=== PATIENT | female | born 1965 | race Caucasian/White ===

== ENCOUNTER → 2021-01-07 09:21 | Outpatient (CLI) | payer OTHER, SELFPAY ==
[2021-01-07 10:29] LABS: COVID19 -Nasal RAPID Negative (Negative)
== END ==
PROVIDERS: Family Provider Family Medicine; PCP Family Medicine; Referring Provider Family Medicine; Visit Provider Internal Medicine
DX: Z20.822 Contact with and (suspected) exposure to COVID-19 (principal)
CPT/HCPCS: 87635; C9803

== ENCOUNTER → 2021-01-08 10:49 | Outpatient (CLI) | payer OTHER, SELFPAY ==
--- NOTE | 2021-01-17 11:03 | PM.PFT.1 ---
Pulmonary Function Test Referral & Results Date Patient Seen: 01/08/21 Requesting provider: Latasha Dunaway Results: The spirometry demonstrates an FVC of 3.33 L which is 90% of predicted. The FEV1 was measured at 2.54 L which is 88% of predicted. The FEV1/FVC ratio was 76 which is 96% of predicted. Following the administration of bronchodilator there was no appreciable change. Lung volumes show an SVC of 3.23 L which is 95% of predicted. The diffusing capacity was measured at 26.43 which is 98% of predicted. The maximum voluntary ventilation was normal Interpretation: This study demonstrates normal pulmonary function
== END ==
PROVIDERS: Family Provider Family Medicine; PCP Family Medicine; Referring Provider Family Medicine; Visit Provider Family Medicine
DX: R06.2 Wheezing (principal); J98.8 Other specified respiratory disorders; Z87.891 Personal history of nicotine dependence
CPT/HCPCS: 94060; 94726; 94729

== ENCOUNTER → 2021-01-11 12:10 | Outpatient (CLI) | payer OTHER, SELFPAY ==
--- NOTE | 2021-01-11 | DI.MG.S_ITS ---
BILATERAL DIGITAL SCREENING MAMMOGRAM 3D/2D WITH CAD: 01/11/2021 CLINICAL: Routine screening. Comparison is made to exams dated: 06/01/2017 mammogram, 05/22/2017 mammogram, 01/01/2015 mammogram, and 08/31/2012 mammogram - [facility]. There are scattered fibroglandular elements in both breasts. Current study was also evaluated with a Computer Aided Detection (CAD) system. No significant masses, calcifications, or other findings are seen in either breast. There has been no significant interval change. IMPRESSION: NEGATIVE There is no mammographic evidence of malignancy. A 1 year screening mammogram is recommended. This exam was interpreted at Station ID: [id number]. NOTE: For mammograms, a report in lay terms will be sent to the patient. Approximately 15% of breast malignancies will not be visualized mammographically. In the management of a palpable breast mass, a negative mammogram must not discourage biopsy of a clinically suspicious lesion. Electronically Signed By: Luis lou/froy:01/11/2021 12:33:45 letter sent: Normal Exam ACR BI-RADS Category 1: Negative 3341F
--- NOTE | 2021-01-11 | DI.RAD.S_ITS ---
PROCEDURE: XR CHEST 2V INDICATIONS: WHEEZING TECHNIQUE: 2 views of the chest were acquired. COMPARISON: [facility], , CHEST 2 VIEW, 12/18/2014, 12:24. FINDINGS: Surgical changes and devices: None. Lungs and pleura: Lungs are clear. No pleural effusions or pneumothorax. Mediastinum: Mediastinal contours are normal. Heart size is normal. Bones and chest wall: No suspicious bony abnormalities. Soft tissues appear unremarkable. IMPRESSION: Normal for age, source of current wheezing symptoms is not seen. Dictated by: Bijan Brito M.D. on 01/11/2021 at 12:49 Approved by: Bijan Brito M.D. on 01/11/2021 at 12:50
--- NOTE | 2021-01-11 | DI.US.S_ITS ---
PROCEDURE: US PELVIC COMPLETE INDICATIONS: ABNORMAL BLEEDING TECHNIQUE: Real-time scanning was performed of the pelvic organs, with image documentation. Additional endovaginal scanning was necessary due to incomplete visualization of the adnexal and endometrial structures by transabdominal scanning. COMPARISON: [facility], US PELVIC, 09/03/2002, 14:44. FINDINGS: Uterus: Uterus is normal in size at 7.2 x 3.7 x 4.8 cm. The endometrium is ill-defined and not well visualized. Ovaries: Right ovary not visualized. Normal left ovary measuring 1.9 x 0.9 x 1.6 cm. Other: No pathologic free abdominal or pelvic fluid. IMPRESSION: Ill-defined endometrial complex which cannot be accurately assessed. If indicated, pre and post-contrast gynecologic protocol MRI could be performed for further assessment. Dictated by: Vince RODAS Interpreted: Bernadine Wilson MD on 01/11/2021 at 13:41 Approved by: Bernadine Wilson M.D. on 01/11/2021 at 15:08
== END ==
PROVIDERS: Family Provider Family Medicine; PCP Family Medicine; Referring Provider Family Medicine; Visit Provider Family Medicine
DX: Z12.31 Encounter for screening mammogram for malignant neoplasm of breast (principal); N93.9 Abnormal uterine and vaginal bleeding, unspecified; R06.2 Wheezing
CPT/HCPCS: 71046; 76830; 76856; 77063; 77067

== ENCOUNTER → 2021-02-08 09:47 | Outpatient (CLI) | payer OTHER, SELFPAY ==
[2021-02-08 11:06] LABS: COVID19 -Nasal RAPID Negative (Negative)
== END ==
PROVIDERS: Family Provider Family Medicine; PCP Family Medicine; Visit Provider Physician Assistant
DX: Z20.822 Contact with and (suspected) exposure to COVID-19 (principal)
CPT/HCPCS: 87635

== ENCOUNTER → 2021-02-10 07:52 | Outpatient (CLI) | payer OTHER, SELFPAY ==
--- NOTE | 2021-02-10 19:54 | DI.NM.S_ITS ---
DATE OF SERVICE: 02/10/2021 PROCEDURE PERFORMED: Exercise treadmill stress and rest myocardial perfusion imaging with gating to assess ejection fraction and regional wall motion. ORDERING PROVIDER: Latasha Dunaway M.D. INDICATIONS: The patient is a 55-year-old female with chest pressure. EXERCISE TREADMILL TESTING: The patient was able to exercise for 7 minutes 55 seconds on a standard Karl protocol, suggesting good exercise capacity with an CHELA of -8 percent, achieving 10.1 METs. She had a normal heart rate and blood pressure response, achieving a maximum heart rate of 159 BPM (96 percent of her predicted maximum). She had no chest discomfort or other anginal symptoms. The resting ECG appears normal and there are no ST-segment shifts or arrhythmias with exercise. At 6 minutes 40 seconds of exercise at a heart rate of 145 BPM, 25.6 millicuries of technetium-99m Myoview was injected and she was imaged 20 minutes later using a gated SPECT acquisition protocol. Earlier in the day while at rest, she had been injected with 14.2 millicuries technetium-99m Myoview and was imaged 30 minutes later, again using a gated SPECT acquisition protocol. FINDINGS: 1. Raw data: There is fair myocardial tracer uptake with moderate breast shadows noted. Her lung/heart ratio was normal at 0.32 with a normal TID ratio of 0.87. 2. Quantitated gated SPECT: Post-stress ejection fraction is estimated at 73 percent with normal wall motion and specifically the anterior wall appears to have brisk contractility. Resting ejection fraction is 64 percent with a borderline elevated end-diastolic volume of 123 mL. 3. Myocardial perfusion imaging: Post-stress supine images show a mild perfusion defect in the mid anterior wall in a pattern that would be most consistent with breast attenuation artifact, supported by its near-complete resolution on the prone images, although with a slight residual defect remaining present but shifted superiorly, consistent with differential breast positioning. The resting images show an identical perfusion pattern without any significant improvement in the anterior defect and no other perfusion defects. IMPRESSION: 1. Probable normal myocardial perfusion study. 2. Mild fixed mid anterior defect that nearly completely resolves on prone imaging, most consistent with breast attenuation artifact. While a nontransmural myocardial infarction cannot be entirely excluded, the absence of any wall motion abnormality in this area would mitigate against it. There is no evidence for any significant myocardial ischemia. 3. Normal left ventricular systolic function without any regional wall motion abnormality. Left ventricular volumes are at the upper limits of normal. 4. Good exercise capacity without angina or electrocardiographic evidence of ischemia. MichaelCindy - ROLA/royal/jeanmarie doc#: [id number]/job#: [id number] dd: 02/10/2021 17:04:00 dt: 02/10/2021 19:45:00 DICTATING MD/COPIES TO: Obey Ha MD; Latasha Dunaway MD COPIES MNE: SUMI;
== END ==
PROVIDERS: Family Provider Family Medicine; PCP Family Medicine; Referring Provider Family Medicine; Visit Provider Family Medicine
DX: R07.9 Chest pain, unspecified (principal)
CPT/HCPCS: 78452; 93017; A9502

== ENCOUNTER 2023-03-29 17:41 | Emergency (ER) | payer OTHER, SELFPAY ==
[2023-03-29 17:44] VITALS: BP 140/84; PULSE 53; RESP 53; TEMP 36.8; O2SAT 98; BMI 29.9
--- NOTE | 2023-03-29 17:46 | DI.RAD.S_ITS ---
PROCEDURE: XR ANKLE LT MIN 3V INDICATIONS: rolled ankle, pain and swelling TECHNIQUE: 3 views of the ankle were acquired. COMPARISON: None. FINDINGS: Bones: No fractures or dislocations. Ankle mortise is normally aligned. No suspicious bony lesions. Soft tissues: No tibiotalar joint effusion. Ossification within the distal Achilles tendon. IMPRESSION: 1. Chronic Achilles tendinopathy. 2. No acute fracture. No osseous lesion. If symptoms and/or clinical suspicion for pathology persist, further assessment with repeat, or advanced imaging (e.g., CT, MRI, or bone scan) may be helpful for further assessment. Dictated by: Colt Churchill M.D. on 03/29/2023 at 18:04 Approved by: Colt Churchill M.D. on 03/29/2023 at 18:04
[2023-03-29 20:10] VITALS: BP 110/55; PULSE 65; RESP 16; O2SAT 97
--- NOTE | 2023-03-29 22:16 | ED_ITS ---
HPI - Extremity Injury (Lower) General Chief Complaint: Extremity Injury, Lower Stated Complaint: rolled lt foot and ankle Time Seen by Provider: 03/29/23 22:16 Source: patient Mode of arrival: Wheelchair Related Data Home Medications Medication Instructions Recorded Confirmed etonogestrel 0.12 mg-ethinyl 1 vaginalrin vaginal Q3W 04/05/18 12/15/18 estradiol 0.015 mg/24 hr vaginal ring (NuvaRing) fluticasone propionate 50 1 spray intranasal DAILY 04/05/18 12/15/18 mcg/actuation nasal spray,suspension (Flonase Allergy Relief) loratadine 10 mg tablet (Claritin) 10 mg PO DAILY 04/05/18 12/15/18 rizatriptan 5 mg tablet (Maxalt) 5 mg PO ONCE 04/05/18 12/15/18 Previous Rx's Medication Instructions Recorded erythromycin 5 mg/gram (0.5 %) eye 1 applictn ophthalmic (eye) BID #1 11/08/18 ointment g albuterol sulfate 90 mcg/actuation 1 inh inhalation Q4-6H PRN 12/15/18 aerosol inhaler shortness of breath #18 grams azithromycin 250 mg tablet See Rx Instructions PO .COMPLEX #6 12/15/18 tabs Allergies Allergy/AdvReac Type Severity Reaction Status Date / Time No Known Drug Allergies Allergy Verified 03/29/23 17:44 Patient History Social History Smoking Status: Never smoker alcohol intake: current (occasionally) Smoking Status: Never smoker Substance Use Type: marijuana Exam Initial Vital Signs Initial Vital Signs: Vital Signs Temperature 98.2 F 03/29/23 17:44 Pulse Rate 53 L 03/29/23 17:44 Respiratory Rate 53 H 03/29/23 17:44 Blood Pressure 140/84 03/29/23 17:44 Pulse Oximetry 98 03/29/23 17:44 Oxygen Delivery Method Room Air 03/29/23 17:44 Course Orders Ordered: ED Orders 03/29/23 17:46 XR ankle LT min 3V Stat Vital Signs Vital signs: Vital Signs - 8 hr 03/29/23 17:44 03/29/23 20:10 Temperature 98.2 F Pulse Rate 53 L 65 Respiratory Rate 53 H 16 Blood Pressure 140/84 110/55 L Pulse Oximetry 98 97 Oxygen Delivery Method Room Air Room Air Discharge Plan Departure Patient Disposition: Left Without Being Seen Clinical Impression: Patient left without being seen Prescriptions: No Action fluticasone propionate [Flonase Allergy Relief] 50 mcg/actuation spray,susp ension 1 spray NASAL DAILY loratadine [Claritin] 10 mg tablet 10 mg PO DAILY rizatriptan [Maxalt] 5 mg tablet 5 mg PO ONCE etonogestrel-ethinyl estradiol [NuvaRing] 0.12-0.015 mg/24 hr ring 1 vaginalrin VAG Q3W azithromycin 250 mg tablet See Rx Instructions PO .COMPLEX Qty: 6 0RF Rx Instructions: take 500 mg today (day 1), then 250 mg for 4 days (days 2-5) PO albuterol sulfate 90 mcg/actuation HFA aerosol inhaler 1 inh INHALATION Q4-6H PRN (Reason: shortness of breath) Qty: 18 0RF erythromycin 5 mg/gram (0.5 %) ointment 1 applictn ophthalmic (eye) BID Qty: 1 0RF
[2023-03-29 22:17] VITALS: BP 133/74; PULSE 61; RESP 16; O2SAT 98
== END 2023-03-29 22:24 | disposition left against medical advice (07) ==
PROVIDERS: Emergency Provider Emergency Medicine; Family Provider Family Medicine; PCP Family Medicine
DX: M25.572 Pain in left ankle and joints of left foot (principal)
CPT/HCPCS: 73610; 99281

== ENCOUNTER → 2023-11-18 07:52 | Outpatient (CLI) | payer OTHER, SELFPAY ==
--- NOTE | 2023-11-18 | DI.MG.S_ITS ---
BILATERAL DIGITAL SCREENING MAMMOGRAM 3D/2D WITH CAD: 11/18/2023 CLINICAL: Routine screening. Comparison is made to exams dated: 01/11/2021 mammogram, 06/01/2017 mammogram, 05/22/2017 mammogram, and 01/01/2015 mammogram - [facility]. There are scattered areas of fibroglandular density in both breasts (category b / 25%-50% glandular tissue). Current study was also evaluated with a Computer Aided Detection (CAD) system. No significant masses, calcifications, or other findings are seen in either breast. There has been no significant interval change. IMPRESSION: NEGATIVE There is no mammographic evidence of malignancy. A 1 year screening mammogram is recommended. Based on the Tyrer Cuzick model (a risk assessment model) the patient's lifetime risk is 7.4% and her 10 year risk is 2.7%. According to the ACR, ACS, and NCCN guidelines, an annual breast MRI exam along with mammogram is recommended if the patient's lifetime risk is 20% or greater. This exam was interpreted at Station ID: [id number]. NOTE: For mammograms, a report in lay terms will be sent to the patient. Approximately 15% of breast malignancies will not be visualized mammographically. In the management of a palpable breast mass, a negative mammogram must not discourage biopsy of a clinically suspicious lesion. Electronically Signed By: Willard feldman/froy:11/21/2023 07:12:10 letter sent: Normal Exam ACR BI-RADS Category 1: Negative 3341F
== END ==
PROVIDERS: Family Provider Family Medicine; PCP Family Medicine; Referring Provider Family Medicine; Visit Provider Family Medicine
DX: Z12.31 Encounter for screening mammogram for malignant neoplasm of breast (principal)
CPT/HCPCS: 77063; 77067

== ENCOUNTER 2024-03-07 10:34 | Day surgery (SDC) | payer OTHER, SELFPAY ==
[2024-03-07 11:13] VITALS: BP 108/64; PULSE 57; RESP 14; TEMP 36.8; O2SAT 94
[2024-03-07] MEDS: LACTATED RINGERS 1,000 ML 42 ML IV (11:28)
--- NOTE | 2024-03-07 11:28 | P.HP_ITS ---
History of Present Illness History of Present Illness Date Patient Seen: 03/07/24 Time Patient Seen: 11:28 Chief complaint: Colonoscopy Narrative: Cindy is a 58-year-old woman who presents for colonoscopy. She last had one aproximally 5 years ago in [place] with polyps removed. No family history of colon cancer. [facility] Social History Smoking Status: Never smoker alcohol intake: current Meds Home Medications and Allergies Home Medications Medication Instructions Recorded Confirmed Type fluticasone propionate 50 1 spray intranasal DAILY 04/05/18 03/07/24 History mcg/actuation nasal spray,suspension (Flonase Allergy Relief) loratadine 10 mg tablet (Claritin) 10 mg PO DAILY 04/05/18 03/07/24 History rizatriptan 5 mg tablet (Maxalt) 5 mg PO ONCE 04/05/18 03/07/24 History albuterol sulfate 90 mcg/actuation 1 inh inhalation Q4-6H PRN 12/15/18 03/07/24 Rx aerosol inhaler shortness of breath #18 grams Allergies Allergy/AdvReac Type Severity Reaction Status Date / Time No Known Drug Allergies Allergy Verified 03/29/23 17:44 Exam Vital Signs (past 8 hours): - 03/07/24 11:13 Temperature 98.2 F Pulse Rate 57 L Respiratory Rate 14 Blood Pressure 108/64 Pulse Oximetry 94 Oxygen Delivery Method Room Air Oxygen Delivery Method Room Air Const General: No acute distress Resp Effort & Inspection: normal respiratory effort Assessment & Plan Assessment and plan (1) Colon cancer screening: Status: Acute Plan We reviewed the risks and benefits of colonoscopy for colon cancer screening and she would like to proceed.
--- NOTE | 2024-03-07 12:40 | PM.OP.COLON ---
Operative Date/Time/Diagnoses Date of procedure: 03/07/24 Time of procedure: 12:40 Pre-op diagnosis: Colon cancer screening Post-op diagnosis: same Procedure & Clinicians Study performed: Colonoscopy Same procedure as scheduled: Yes Surgeon: Power Betancourt Procedure Notes Procedure in detail: Surgeon: Power Betancourt MD Anesthesia: Amy York DO Procedure: The patient was brought to the endoscopy suite, placed in left lateral decubitus position. The patient was connected to monitoring devices. A time-out was performed. Sedation was administered. Once the patient was adequately sedated, a digital rectal exam was performed and was normal. The scope was then inserted and advanced to the cecum where the appendiceal orifice was identified and photographed. The scope was then slowly withdrawn over greater than 6 minutes. The mucosa was thoroughly inspected. No abnormalities were found. The scope was retroflexed in the rectum. No abnormalities were seen. The scope was straightened and removed. The patient was awakened and brought to recovery. Scope withdrawal time: 7 minutes Sedation time: 11 minutes EBL: 0 Findings: Normal colon Post-procedure Recommendations: Colonoscopy in 10 years Disposition: PACU
[2024-03-07 12:43] VITALS: BP 107/45; PULSE 70; RESP 20; TEMP 36.3; O2SAT 98
[2024-03-07 12:48] VITALS: BP 101/59; PULSE 67; RESP 14; O2SAT 97
[2024-03-07 13:00] VITALS: BP 119/73; PULSE 60; RESP 14; O2SAT 97
[2024-03-07 13:15] VITALS: BP 143/78; PULSE 68; RESP 16; TEMP 36.5; O2SAT 97
== END 2024-03-07 13:20 | disposition home or self-care (01) ==
PROVIDERS: Family Provider Family Medicine; PCP Family Medicine; Referring Provider Surgery; Visit Provider Surgery
PROC: 0DJD8ZZ Inspection of Lower Intestinal Tract, Via Natural or Artificial Opening Endoscopic (ICD-10-PCS; CPT 45378; principal; 2024-03-07 11:30)
DX: Z12.11 Encounter for screening for malignant neoplasm of colon (principal)
CPT/HCPCS: 45378; J2704

== ENCOUNTER → 2025-04-30 09:08 | Outpatient (CLI) | payer OTHER, SELFPAY ==
--- NOTE | 2025-04-30 09:10 | DI.RAD.S_ITS ---
PROCEDURE: XR CHEST 2V INDICATIONS: COUGH TECHNIQUE: 2 views of the chest were acquired. COMPARISON: [facility], CR, XR CHEST 2V, 01/11/2021, 13:28. FINDINGS: Heart, mediastinum and pulmonary vascular: Heart is normal in size and configuration. Mediastinum is unremarkable. Pulmonary vascular is normal. Lungs: Small patchy right lower lobe infiltrate appears to be developing Pleural spaces: Normal-no effusions or pneumothorax. Bones and soft tissues: Normal IMPRESSION: Small patchy right lower lobe pneumonia Dictated by: Michael Issa M.D. on 05/01/2025 at 12:41 Approved by: Michael Issa M.D. on 05/01/2025 at 12:42
== END ==
PROVIDERS: Family Provider Family Medicine; PCP Family Medicine; Referring Provider Family Medicine; Visit Provider Family Medicine
DX: J18.9 Pneumonia, unspecified organism (principal); R05.2 Subacute cough
CPT/HCPCS: 71046

== ENCOUNTER → 2025-05-28 | Outpatient (CLI) | payer OTHER, SELFPAY ==
--- NOTE | 2025-05-28 09:29 | DI.RAD.S_ITS ---
PROCEDURE: XR CHEST 2V INDICATIONS: SUBACUTE COUGH TECHNIQUE: 2 views of the chest were acquired. COMPARISON: [facility], CR, XR CHEST 2V, 04/30/2025, 9:07. FINDINGS: Surgical changes and devices: None. Lungs and pleura: Lungs are clear of acute opacities.. No pleural effusions or pneumothorax. Mediastinum: Mediastinal contours are normal. Heart size is normal. Bones and chest wall: No suspicious bony abnormalities. Soft tissues appear unremarkable. IMPRESSION: No acute cardiopulmonary abnormality is seen. Dictated by: Taty Cannon MD, PhD on 05/28/2025 at 11:43 Approved by: Taty Cannon MD, PhD on 05/28/2025 at 11:43
== END ==
PROVIDERS: Family Provider Family Medicine; PCP Family Medicine; Referring Provider Family Medicine; Visit Provider Family Medicine
DX: J18.9 Pneumonia, unspecified organism (principal); R05.2 Subacute cough
CPT/HCPCS: 71046

== ENCOUNTER → 2025-08-07 14:44 | Outpatient (CLI) | payer OTHER, SELFPAY | LOC: RESP 14:45 | PROVIDERS: Family Provider Family Medicine; PCP Family Medicine; Referring Provider Family Medicine; Visit Provider Family Medicine | DX: R06.02 Shortness of breath (principal); R05.1 Acute cough; Z87.891 Personal history of nicotine dependence; R94.2 Abnormal results of pulmonary function studies | CPT/HCPCS: 94060; 94726; 94729 ==

== ENCOUNTER → 2025-08-14 16:12 | Outpatient (CLI) | payer OTHER, SELFPAY ==
--- NOTE | 2025-08-14 16:13 | DI.MG.S_ITS ---
MM screening mammo BI: 08/14/2025. BI-RADS: 1 CLINICAL: 60-year old female for bilateral screening mammogram. Tyrer-Cuzick lifetime risk of 7.1%. No personal or first-degree family history of breast cancer. PRIOR EXAMS 11/18/2023, 01/11/2021, 06/01/2017, 05/22/2017. MAMMOGRAPHY TECHNIQUE: 2D and 3D (tomosynthesis) digital mammographic views obtained, with additional images as needed for full coverage. Current study was also evaluated with a Computer Aided Detection (CAD) system. DENSITY B. There are scattered areas of fibroglandular density. MAMMOGRAPHY FINDINGS Bilateral: No suspicious mass, asymmetry, microcalcification, or other abnormality seen. IMPRESSION: * No evidence of malignancy. RECOMMENDATIONS Bilateral * Annual screening mammography. OVERALL ASSESSMENT CATEGORY BI-RADS-1: Negative. The [employer] recommends annual screening mammography beginning at age 40 for women with average risk of breast cancer. ELECTRONICALLY SIGNED: Karyna Quinn M.D. on 08/18/2025 at 08:27:04 AM PT Interpreting Station ID: [id number]
== END ==
LOC: MAMMO 16:13
PROVIDERS: Family Provider Family Medicine; PCP Family Medicine; Referring Provider Family Medicine; Visit Provider Family Medicine
DX: Z12.31 Encounter for screening mammogram for malignant neoplasm of breast (principal)
CPT/HCPCS: 77063; 77067